=== PATIENT | female | born 1960 | race Caucasian/White ===

== ENCOUNTER → 2017-06-28 | Outpatient (CLI) | payer OTHER ==
[~2017-06-28] MED LIST: [UNRECOGNIZED DRUG - OTHER]
--- NOTE | 2017-06-28 17:54 | Diagnostic Imaging Report ---
PROCEDURE:X-RAY ABDOMEN - KUB COMPARISON:Patients [facility], DX, ABDOMEN-1VIEW (KUB), 03/06/2017, 9:07. INDICATIONS:CALCULI OF KIDNEY FINDINGS: There are no dilated loops of bowel to suggest obstruction. Multiple 1-2 mm calcification projected on the left renal shadow. Punctate calcific density projected on the lower pole right renal shadow. Multiple phleboliths projected over lower pelvis. There is no evidence of free air. No acute osseous abnormalities are present. CONCLUSION: Bilateral punctate nephrolithiasis appears stable. Magdalena Figueroa M.D. Dictated by: Magdalena Figueroa M.D. on 06/28/2017 at 17:54 Electronically approved by: Magdalena Figueroa M.D. on 06/28/2017 at 17:54
== END ==
LOC: RAD 17:04
PROVIDERS: ATTEND Urology
DX: N20.0 Calculus of kidney (principal)
CPT/HCPCS: 74018

== ENCOUNTER → 2018-04-10 | Outpatient (CLI) | payer OTHER ==
--- NOTE | 2018-04-10 11:18 | Diagnostic Imaging Report ---
Exam: Abdominal film Clinical History: Renal calculi Comparison: None. DISCUSSION: 6 mm calculus projects over the lower pole of the left kidney. 4 mm calculus projects over the upper pole of the left kidney. 3 mm calculus projects over the lower pole of the right kidney. Bilateral round pelvic calcifications likely represent phleboliths. Bowel gas pattern is nonobstructive. No mass effect or organomegaly. Regional skeletal structures are intact. IMPRESSION: Bilateral renal calculi measuring up to 6 mm on the left and 3 mm on the right as above. Signed by: Dr. Bhaskar Jimenez M.D. on 04/10/2018 11:15 AM
== END ==
LOC: RAD 10:35
PROVIDERS: ATTEND Urology
DX: N20.0 Calculus of kidney (principal)
CPT/HCPCS: 74018

== ENCOUNTER → 2018-05-11 | Outpatient (CLI) | payer OTHER ==
--- NOTE | 2018-05-11 12:52 | Diagnostic Imaging Report ---
EXAMINATION: CT of the abdomen and pelvis without contrast. TECHNIQUE: Spiral CT images of the abdomen and pelvis were performed from the lung bases to the lesser trochanters. No intravenous contrast was given per renal stone protocol. Coronal and sagittal reformatted images were obtained. COMPARISON: 04/27/2012 CLINICAL HISTORY:Renal stones DISCUSSION: ABSENCE OF INTRAVENOUS CONTRAST DECREASES SENSITIVITY FOR DETECTION OF FOCAL LESIONS AND VASCULAR PATHOLOGY. ABDOMEN/PELVIS: LOWER THORAX: Lingular scar or subsegmental atelectasis. HEPATOBILIARY:No focal hepatic lesions. No biliary ductal dilation. The gallbladder is normal. SPLEEN: No splenomegaly. PANCREAS: Fatty atrophy of the head and uncinate process. ADRENALS: No adrenal nodules. KIDNEYS/URETERS: Renal calculi as follows: 4 mm left upper pole 3 mm left upper pole 6 mm left interpolar Punctate left lower pole x2 2 mm right upper pole 2 mm right interpolar Punctate right lower pole x2 No hydronephrosis. No ureteral calculi. No gross renal mass lesion. Overall, stone burden has increased compared to the examination from 2012. PELVIC ORGANS/BLADDER: The urinary bladder is unremarkable. Uterus is anteflexed and appears normal. No adnexal mass. PERITONEUM/RETROPERITONEUM: No free air or fluid. LYMPH NODES: No pelvic sidewall, retroperitoneal, or mesenteric lymphadenopathy. VESSELS: Atherosclerotic calcification of the abdominal aorta without aneurysmal dilatation. Otherwise limited evaluation in the absence of intravenous contrast. GI TRACT: The large bowel shows no evidence of distention or wall thickening. There are a few sigmoid diverticula without wall thickening or adjacent inflammation. Normal appendix. Stomach is partially collapsed. No small bowel dilatation to suggest obstruction BONES AND SOFT TISSUES: No osseous destructive lesions. No focal soft tissue abnormalities. IMPRESSION: Bilateral nonobstructing renal calculi measuring up to 6 mm on the left and 4 mm on the right as detailed above. Increased stone burden relative to 04/27/2012. Mild sigmoid diverticulosis without findings of diverticulitis. Atherosclerotic vascular disease. Signed by: Dr. Bhaskar Jimenez M.D. on 05/11/2018 12:49 PM
== END ==
LOC: CT 12:03
PROVIDERS: ATTEND Urology
DX: N20.0 Calculus of kidney (principal)
CPT/HCPCS: 74176

== ENCOUNTER → 2019-06-12 | Outpatient (CLI) | payer OTHER ==
--- NOTE | 2019-06-12 16:15 | Diagnostic Imaging Report ---
EXAM: ABDOMEN-1VIEW (KUB) DATE: 06/12/2019 3:47 PM INDICATION: Calculus of kidney COMPARISON: CT abdomen/pelvis from 05/11/2018, radiograph from 04/10/2018 FINDINGS: Bowel gas pattern is nonobstructive. No pathologically dilated loops of small bowel are identified. Bowel gas partially obscures renal shadows. There is a 3 mm calcification identified projecting of the inferior right renal shadow. There are 3 subcentimeter calcifications identified projecting over the left renal shadow. The largest measures 6 mm and projects over the lower pole. Suspected phleboliths noted within the pelvis. No acute osseous abnormality is identified. IMPRESSION: Bilateral renal calculi as detailed above. Signed by: Dr. Andrey Ronquillo MD on 06/12/2019 4:13 PM
== END ==
LOC: RAD 15:38
PROVIDERS: ATTEND Urology
DX: N20.0 Calculus of kidney (principal)
CPT/HCPCS: 74018

== ENCOUNTER → 2019-10-11 | Day surgery (SDC) | payer OTHER ==
[2019-10-08 17:23] LABS: BASOPHILS % 0.4 % (0.0-1.0); EOSINOPHILS # (AUTO) 0.2 (0.0-0.4); EOSINOPHILS % 1.9 % (0.0-6.0); HEMATOCRIT 37.7 % (34.2-44.1); HEMOGLOBIN 12.1 g/dL (12.0-16.0); LYMPHOCYTES # (AUTO) 4.1 (1.0-3.2); LYMPHOCYTES % 40.8 % (18.0-39.1); MEAN CORPUSCULAR HEMOGLOBIN 30.1 pg (28-32); MEAN CORPUSCULAR HGB CONC 32.1 g/dL (31-35); MEAN CORPUSCULAR VOLUME 93.8 fL (81-99); MONOCYTES # (AUTO) 0.7 (0.2-0.8); MONOCYTES % 7.2 % (4.4-11.3); NEUTROPHILS # (AUTO) 4.9 (2.1-6.9); NEUTROPHILS % 49.3 % (38.7-80.0); PLATELET COUNT 297 x10e3/uL (140-360); RED BLOOD COUNT 4.02 x10e6/uL (3.6-5.1); RED CELL DISTRIBUTION WIDTH 13.4 % (11.7-14.4)
[2019-10-08 17:47] LABS: ALBUMIN 4.1 g/dL (3.5-5.0); ALBUMIN/GLOBULIN RATIO 1.1 (0.8-2.0); ANION GAP 14.9 mmol/L (8-16); CALCIUM 9.1 mg/dL (8.4-10.2); CREATININE, SERUM 1.18 mg/dL (0.57-1.11); POTASSIUM 3.9 mmol/L (3.5-5.1)
--- NOTE | 2019-10-08 18:13 | Diagnostic Imaging Report ---
EXAMINATION: PA and lateral views of the chest. COMPARISON: CT abdomen and pelvis 05/09/2018, KUB 06/12/2019 CLINICAL HISTORY: Preop lithotripsy DISCUSSION: Lines/tubes: None. Lungs: The lungs are well inflated and clear. There is no evidence of pneumonia or pulmonary edema. Pleura: There is no pleural effusion or pneumothorax. Heart and mediastinum: Cardiomediastinal silhouette is unremarkable. Pulmonary vasculature is normal. Bones and soft tissues: No acute bony abnormalities. Mild age-appropriate degenerative changes in the thoracic spine IMPRESSION: No acute cardiopulmonary abnormalities. Signed by: Dr. Arron Resendez M.D. on 10/08/2019 6:09 PM
--- NOTE | 2019-10-08 18:16 | Diagnostic Imaging Report ---
aai Exam: Abdominal film Clinical History: Preop lithotripsy Comparison: KUB 06/12/2019, CT abdomen and pelvis 05/11/2018 DISCUSSION: Frontal view of the abdomen shows a nonobstructive bowel gas pattern with mild amount of retained stool.There are no dilated, air-filled loops of bowel. Stable 2 mm nonobstructing calculus in the right inferior pole. Stable 4 mm nonobstructing calculus in the left superior pole. Pelvic phlebolith No acute bone abnormality. IMPRESSION: 1. Nonobstructive bowel gas pattern. 2. Stable bilateral nonobstructing calculi The staff physician below has personally reviewed this exam on the date of dictation. Signed by: Dr. Arron Resendez M.D. on 10/08/2019 6:13 PM
[~2019-10-11] MED LIST changes: +ASA PO; +ATORVASTATIN CA20 MG PO; +B&O 60MG R/S 60 MG SUPP PR ONE; +CLARITIN-D 241 EACH PO; +DEXAMETHASONE SOD PHOS INJ 4 MG/ML VIAL ONE; +FENTANYL CITRATE/PF 100MCG/2 ML INJ ONE; +GENTAMICIN 80MG/NS 100 ML 200 ML IV ONE; +IOPAMIDOL 300MG/ML 50ML INFUS..BTL IV ONE; +LEVOFLOXACIN 500MG/D5W 100ML 100 ML IV ONE; +LIDOCAINE HCL 2% LOCAL INJ 5 ML SDV VIAL INJ ONE; +LOVASTATIN10 MG PO; +METOCLOPRAMIDE HCL 10 MG/2ML VIAL ONE; +MIDAZOLAM HCL 2 MG/2 ML VIAL ONE; +ONDANSETRON HCL INJ 2MG/ML 2ML 2 MG/ML VIAL ONE; +PHENYLEPHRINE HCL 1% 10 MG/ML VIAL ONE; +PROPOFOL IV EMULSION 10 MG/ML 20 ML VIAL ONE; +RAPAFLO8 MG PO; +SEVOFLURANE INHAL SOLN 250 ML PEN BTL ONE
[2019-10-11 12:45] VITALS: BP 121/65
--- NOTE | 2019-11-25 01:10 | Operative Report ---
DATE OF PROCEDURE: 10/11/2019 SURGEON: Angelo Dunlap MD PREOPERATIVE DIAGNOSES: 1. Nephrolithiasis. 2. Left renal colic. 3. Urinary tract infections. POSTOPERATIVE DIAGNOSES: 1. Nephrolithiasis. 2. Left renal colic. 3. Urinary tract infections. 4. Grade 1 cystocele. 5. Grade 3 rectocele. 6. Urethral hypermobility. 7. Atrophic (senile) vaginitis. OPERATIONS PERFORMED: Note, these were all staged procedures as part of multi-staged and multi-step process in managing the patient's urolithiasis. 1. Left-sided extracorporeal shockwave lithotripsy (separate procedure performed to treat left-sided stones, separate procedure performed for the left-sided nephrolithiasis). 2. Cystourethroscopy with bilateral ureteral catheterization and retrograde ureteropyelography (separate procedure performed for the urinary tract infections). 3. Interpretation of retrograde ureteropyelography. 4. Supervision of fluoroscopy, no radiologist present. 5. Cystourethroscopy with insertion of left indwelling ureteral stent (separate procedure performed to relieve the left renal colic that we anticipate with this lithotripsy of stone burden larger than 10 mm total diameter). 6. Pelvic examination under anesthesia. ANESTHESIA: General. COMPLICATIONS: None. CLINICAL SUMMARY: Katiana Johnson is a 59-year-old woman with the above preoperative diagnoses. She was brought for the above procedures. She is aware of the risks of bleeding, infection, injury to adjacent structures, need for additional procedures, and elected to proceed. OPERATIVE PROCEDURE IN DETAIL: Informed consent verified. Katiana Johnson was properly identified, taken to the operating room, and placed on the lithotripsy table in supine position. Anesthesia was uneventfully begun. The patient was then carefully and gently repositioned in the dorsal lithotomy position with all pressure points well padded. Her genitalia were prepared and draped in usual sterile fashion. The patient's left nephrolithiasis was localized with biplanar fluoroscopy. A total of 3000 shocks were delivered with excellent fragmentation noted. The patient was then carefully and gently repositioned in the dorsal lithotomy position with all pressure points well padded. Her genitalia were prepared and draped in usual sterile fashion. The cystoscope sheath with obturator in place was atraumatically inserted into the patient's urethra and bladder was drained. Panendoscopy revealed no suspicious mucosal lesions, no tumors, no stones, and no diverticula, normally positioned configured ureteral orifices were identified. The ureteral catheter was used to cannulate the left ureter and retrograde ureteropyelography was performed. A guidewire was placed under cystoscopic and fluoroscopic guidance, a left-sided indwelling ureteral stent was then placed, it was coiled in the patient's kidney as well as the patient's bladder. The retaining suture was cut short. The ureteral catheter was inserted in the right ureter and retrograde ureteropyelograms were performed. Interpretation of retrograde ureteropyelography, there was a right lower pole stone that was relatively small, that we did not treat at this time. There was no right-sided hydronephrosis. Unobstructed drainage was observed on the right hand side. The left side exhibited numerous filling defects from fragmenting the stones as well as presumably blood clots. The stent was in good position, coiled into the patient's kidneys as well as the patient's bladder at the end of the case. The patient's bladder was drained and cystoscope was withdrawn. Pelvic examination under anesthesia revealed a grade 1 cystocele, grade 3 rectocele. There was urethral hypomobility present as well as atrophic (senile) vaginitis. No abnormal palpable pelvic masses could be appreciated. There were no obvious mucosal lesions. The patient was then uneventfully reversed from anesthesia and taken to recovery room in stable condition. There were no complications to the procedure. She tolerated the procedure. Plans will be to return the patient to the operating room to perform a right ESWL while concomitantly we plan to perform a cystoscopy, removal of left stent and left ureteroscopy and manage any residual stone. Angelo MD Fabi [place]/KAREN /[id number]
== END | disposition home or self-care (01) ==
LOC: OR 07:44
PROVIDERS: ATTEND Urology
DX: N20.0 Calculus of kidney (principal); E78.00 Pure hypercholesterolemia, unspecified; N39.0 Urinary tract infection, site not specified; N81.6 Rectocele; N81.10 Cystocele, unspecified; N95.2 Postmenopausal atrophic vaginitis; N36.41 Hypermobility of urethra; Z01.810 Encounter for preprocedural cardiovascular examination; Z01.812 Encounter for preprocedural laboratory examination; Z01.818 Encounter for other preprocedural examination; Z11.59 Encounter for screening for other viral diseases
CPT/HCPCS: 36415; 50590; 52332; 71046; 74018; 74420; 80053; 83970; 84550; 85025; 87635; 93005; C1758 ×2; C1769; C2617; J1100; J1580; J1956; J2001; J2250; J2370; J2405; J2704; J2765; J3010; Q9967; U0002

== ENCOUNTER → 2019-12-20 | Day surgery (SDC) | payer OTHER ==
--- NOTE | 2019-12-17 10:20 | Diagnostic Imaging Report ---
Exam: KUB -one view Indication: Preoperative Comparison: KUB of 10/08/2019 Findings: Left internal nephroureteral stent in place. Previously described left renal calculus is no longer visualized. 3 mm calcific density just lateral to the distal portion of the stent may represent a ureteral stone fragment. Unchanged right lower pole 3 mm calculus. Unchanged phleboliths in the pelvis. No acute osseous injury. Nonobstructive bowel gas pattern. No free air. Impression: Interval placement of left internal nephroureteral stent and resolution of previously seen left renal calculus. New 3 mm calcific density just lateral to the distal portion of the stent may represent a ureteral stone fragment. Stable 3 mm right lower pole renal calculus. Signed by: Baljeet Andersen MD on 12/17/2019 10:17 AM
[~2019-12-20] MED LIST changes: +CEFTRIAXONE SOD 1 GM/NS 50 ML 50 ML IV ONE; -LEVOFLOXACIN 500MG/D5W 100ML 100 ML IV ONE; -METOCLOPRAMIDE HCL 10 MG/2ML VIAL ONE; +OXYBUTYNIN CHLOR5 MG PO; -PHENYLEPHRINE HCL 1% 10 MG/ML VIAL ONE; +SCOPOLAMINE 1.5 MG PATCH ONE; +TYLENOL # 31 EA PO
[2019-12-20 09:45] VITALS: BP 138/72
--- NOTE | 2019-12-23 02:49 | Operative Report ---
DATE OF PROCEDURE: 12/20/2019 SURGEON: Angelo Dunlap MD PREOPERATIVE DIAGNOSES: 1. Urolithiasis. 2. Indwelling ureteral stent. POSTOPERATIVE DIAGNOSES: 1. Left ureterolithiasis. 2. Left nephrolithiasis. 3. Left indwelling ureteral stent. 4. Grade 4 rectocele. 5. Grade 1 cystocele. 6. Urethral hypomobility. 7. Atrophic (senile) vaginitis. OPERATIONS PERFORMED: Note these were all staged procedures as part of multi-staged and multi-step process in managing the patient's urolithiasis. 1. Cystourethroscopy with complicated removal of left indwelling ureteral stent (separate procedure performed with separate scope for the diagnosis of stent). 2. Left semi-rigid ureteroscopy with stone manipulation and extraction (separate procedure performed to extract three distal ureteral stones done with separate scope). 3. Left flexible ureteropyeloscopy with stone manipulation (separate procedure performed for the nephrolithiasis, which was very low small with very small stone burden). 4. Urological services with supervision and interpretation of ureteroscopy, no radiologist present. 5. Interpretation of retrograde ureteropyelography, no radiologist present. 6. Supervision of fluoroscopy, no radiologist present. 7. Pelvic examination under anesthesia. ANESTHESIA: General. COMPLICATIONS: None. CLINICAL SUMMARY: Katiana Johnson is a 59-year-old woman who has undergone prior stone treatment. She has a stent in place and we bring her to the operating room in hopes of rendering her stent free and stone free. She is aware of the risks of bleeding, infection, injury to adjacent structures, need for additional procedures and elected to proceed. PROCEDURE IN DETAIL: Informed consent was verified. Katiana Johnson was properly identified, taken to the operating room, placed on the cystoscopy table in supine position. Anesthesia was uneventfully begun. The patient was then carefully and gently repositioned in the dorsal lithotomy position. All pressure points well padded. Her genitalia were prepared and draped in usual sterile fashion. The cystoscope sheath with obturator in place was atraumatically inserted in the patient's urethra and bladder was drained. Panendoscopy revealed very minimal infiltration on the patient's stent. There were no tumors, no stones, and no suspicious lesions. A guidewire was then placed alongside the stent and guided to the level of the patient's kidney. The stent was then grasped completely, removed and discarded. Semi-rigid ureteroscopy was then performed. The ureteroscope was inserted atraumatically into the bladder alongside the guidewire into the distal left ureter. We identified 3 stones. Each stone was grasped with Nitinol tipless basket and extracted atraumatically. A secondary guidewire was left in place. Flexible ureteroscope was then brought up over the guidewire and guided to the level of the patient's kidney. Careful panendoscopy of the intrarenal collecting system revealed Mian's plaques throughout and also revealed some small stones. The largest of the stones was grasped with Nitinol tipless basket and extracted. The remainder of the stone burden within the kidney was just fine sand, that was too small to grasp with a basket. Nevertheless, we irrigated all that sand loose from the intrarenal mucosa. The patient's bladder was drained. Cystoscope was withdrawn. Pelvic examination under anesthesia revealed grade 4 rectocele, grade 1 cystocele. There was urethral hypermobility present and atrophic (senile) vaginitis. Interpretation of retrograde ureteropyelography contrast was instilled in retrograde fashion bilaterally. There were no tumors or filling defects corresponding to stones in the lower pole calyx. There was not severe hydronephrosis. Unobstructed drainage was observed postoperatively fluoroscopically. Pelvic examination done under anesthesia revealed. DICTATION ENDS HERE Angelo MD Fabi [place]/MODL /[id number] cc: Heidi Morgan MD
== END | disposition home or self-care (01) ==
LOC: OR 05:31
PROVIDERS: ATTEND Urology
DX: N20.1 Calculus of ureter (principal); N20.0 Calculus of kidney; N39.3 Stress incontinence (female) (male); R39.14 Feeling of incomplete bladder emptying; N81.89 Other female genital prolapse; Z46.6 Encounter for fitting and adjustment of urinary device; N81.6 Rectocele; N81.10 Cystocele, unspecified; N36.41 Hypermobility of urethra; N95.2 Postmenopausal atrophic vaginitis; E78.5 Hyperlipidemia, unspecified; Z01.812 Encounter for preprocedural laboratory examination; Z01.818 Encounter for other preprocedural examination; Z11.59 Encounter for screening for other viral diseases
CPT/HCPCS: 52352; 74018; 74420; 88300; C1769; J0696; J1100; J1580; J2001; J2250; J2405; J2704; J3010; Q9967; U0002